=== PATIENT | female | born 1980 | race Caucasian/White ===

== ENCOUNTER → 2022-03-26 | Day surgery (SDC) | payer OTHER ==
[~2022-03-26] MED LIST: ACID REDUCER20 MG PO; CITROMA296 ML PO; D3-501250 MCG PO; ELAVIL 50 MG TA50 MG PO; MIRAPEX0.25 MG PO; NAPROSYN500 MG PO; NICOTINE PATCH1 EACH TD; PROMETHAZINE12.5 M1 PO; ZOFRAN ODT 4 MG4 MG GT
== END | disposition home or self-care (01) ==
LOC: OR 09:10
DX: K29.50 Unspecified chronic gastritis without bleeding (principal); K22.2 Esophageal obstruction; I10 Essential (primary) hypertension; K21.9 Gastro-esophageal reflux disease without esophagitis; F17.210 Nicotine dependence, cigarettes, uncomplicated; F41.9 Anxiety disorder, unspecified; Z79.899 Other long term (current) drug therapy
CPT/HCPCS: J2704